=== PATIENT | male | born 1955 | race Caucasian/White ===

== ENCOUNTER 2021-07-24 14:49 | Emergency (ER) | payer OTHER, SELFPAY ==
[2021-07-24] VITALS (27 sets, daily range): BP systolic 122–211; BP diastolic 72–105; PULSE 62–86; RESP 18–28; O2SAT 90–97; BMI 26.9
--- NOTE | 2021-07-24 14:56 | DI.RAD.S_ITS ---
PROCEDURE: XR CHEST 1V INDICATIONS: chest pain TECHNIQUE: One view of the chest was acquired. COMPARISON: [facility], CHEST 2 VIEW, 04/03/2011, 12:55. [facility], CHEST 2 VIEW, 07/06/2015, 10:40. FINDINGS: Surgical changes and devices: Lower left thoracic clips are seen. Lungs and pleura: On this semiupright portable chest examination, no large pneumothorax or large pleural effusions are seen. No focal infiltrates are seen. Mediastinum: The cardiac contours are within normal limits. The aorta demonstrates calcification and tortuosity. Bones and chest wall: Age-appropriate bony degenerative changes are seen. Mild dextroconvex scoliotic curvature is seen. No suspicious bony lesions. Overlying soft tissues appear unremarkable. IMPRESSION: No acute cardiopulmonary process is seen. Dictated by: Juan Nunez M.D. on 07/24/2021 at 14:29 Approved by: Juan Nunez M.D. on 07/24/2021 at 14:30
[2021-07-24 15:22] LABS: Alanine Aminotransferase 18 IU/L (<50); Albumin 4.9 g/dL (3.5-5.0); Albumin Globulin Ratio 1.7 (1.0-2.8); Alkaline Phosphatase 61 U/L (38-126); Aspartate Aminotransferase 25 IU/L (17-59); BUN Creatinine Ratio 19.9 (6-22); Bilirubin Total 0.5 mg/dL (0.2-1.3); Blood Urea Nitrogen 28 mg/dL (9-20); Calcium 10.5 mg/dL (8.4-10.2); Carbon Dioxide 26 mmol/L (22-32); Chloride 105 mmol/L (98-107); Creatine Kinase 61 U/L (55-170); Estimated Glomerular Filt Rate 50.1 mL/min (>60); Globulin 2.9 g/dL (1.7-4.1); Glucose 116 mg/dL (80-110); HEMOLYSIS < 15 (0-50); Lipase 159 U/L (23-300); Potassium 4.8 mmol/L (3.4-5.1); Sodium 139 mmol/L (137-145); Total Protein 7.8 g/dL (6.3-8.2)
[2021-07-24 15:24] LABS: Add Manual Diff / Slide Review NO; Basophils Absolute Auto 0 /uL (0-100); Basophils Percent Auto 0.5 % (0-2); Eosinophils Absolute Auto 600 /uL (0-450); Eosinophils Percent Auto 9.6 % (2-4); Lymphocytes Absolute Auto 1900 /uL (1100-4500); Lymphocytes Percent Auto 28.8 % (25-40); Mean Corpuscular HGB Conc 34.9 % (30-36); Mean Corpuscular Hemoglobin 30.3 PG (26-34); Mean Corpuscular Volume 86.8 fL (80-100); Monocytes Absolute Auto 400 /uL (0-900); Monocytes Percent Auto 6.8 % (3-14); Neutrophils Absolute Auto 3600 /uL (1500-7000); Neutrophils Percent Auto 54.3 % (50-75); Platelet Count 193 X10^3/uL (150-400); Red Blood Cell Count 4.96 X10^6/uL (4.5-5.9); Red Cell Distribution Width 13.4 % (11.6-14.8); White Blood Cell Count 6.6 X10^3/uL (4.5-11.0)
[2021-07-24 15:34] LABS: Troponin I < 0.012 ng/mL (0.01-0.034)
[2021-07-24 16:12] LABS: COVID19 -Nasal RAPID Negative (Negative)
--- NOTE | 2021-07-24 16:26 | ED_ITS ---
HPI - Chest Pain <Annie Solis DO - Last Filed: 07/25/21 14:46> General Chief Complaint: Chest Pain Stated Complaint: Chest Pressure Time Seen by Provider: 07/24/21 15:42 Source: patient Mode of arrival: EMS Limitations: no limitations Limitations: no limitations History of Present Illness HPI narrative: This is a 66-year-old male with complaint of chest pressure into the left shoulder and down his arm with tingling he describes as being present for the past several months. When asked more specifically he has had persistently but states it is exertional. He states he has tightness into the left shoulder and some tingly sensation. It is worse with ambulation and exertion. He gets a little bit of nausea. He denies shortness of breath. He has had no swelling in his extremities he has had some chills but no fever. No cold cough or congestion. He has never had any vomiting. He has had some mild constipation but no urinary symptoms patient states that he was started on Imdur a couple weeks ago with no change. He was told if he requires more than 1 nitro he should go to the emergency department. He has had episodes where he will use 2 or 3 nitro but does not typically have complete resolution. His most recent episode he had at [facility] he took 2 nitro sublingual he felt lightheaded but had no syncope. Today he had an episode after going to a furniture store and took 1 nitro with no resolution. Patient has had stress testing in January of 2021 with negative test he has never had a stent or pacer placed and had MRI of the brain and angiography that was negative in February of 2022 after has a history of his mom dying of a brain aneurysm and his sister having a brain aneurysm. He has 3 brothers who had cardiac stents and pacemakers placed. And his father of an IA. he follows with cardiology with [place]. He has been in touch with his medical providers and they have scheduled him with the anticipation of having a cardiac catheterization this coming Monday. He is on multiple medications for hypertension, dyslipidemia, diabetes. He does have an essential tremor. Related Data Home Medications Medication Instructions Recorded Confirmed lisinopril 20 mg tablet 20 mg PO .QAFTERNOON tab 06/26/19 06/26/19 prazosin 2 mg capsule 2 mg PO BID 06/26/19 06/26/19 primidone 50 mg tablet 50 mg PO TID tab 06/26/19 06/26/19 trazodone 100 mg tablet 150 mg PO BEDTIME tab 06/26/19 06/26/19 Previous Rx's Medication Instructions Recorded lovastatin 40 mg tablet 80 mg PO HS #180 tab 07/21/16 metoprolol tartrate 50 mg tablet 75 mg PO BID #270 tab 10/24/16 zolpidem 5 mg tablet See Rx Instructions .ROUTE 03/19/19 .COMPLEX PRN #20 tab prazosin 1 mg capsule 4 mg PO HS #360 cap 04/29/19 cefuroxime axetil 500 mg tablet 500 mg PO Q12H #20 tab 08/20/19 codeine 10 mg-guaifenesin 100 mg/5 5 ml PO Q4H #118 ml 08/20/19 mL oral liquid metformin 500 mg tablet 500 mg PO BIDCC #180 tab 10/21/19 (Glucophage) omeprazole 20 mg capsule,delayed 20 mg PO BID #180 cap 10/21/19 release nifedipine 60 mg tablet,extended 60 mg PO QDAY #90 tab 03/12/20 release (Adalat CC) Allergies Allergy/AdvReac Type Severity Reaction Status Date / Time lisinopril [LISINOPRIL] Allergy Mild COUGHING Verified 06/26/19 11:18 rabeprazole [RABEPRAZOLE] Allergy Mild HEARTBURN Verified 06/26/19 11:18 tadalafil [TADALAFIL] Allergy Mild HEADACHE Verified 06/26/19 11:18 terazosin [TERAZOSIN] Allergy Mild NAUSEA Verified 06/26/19 11:18 triamterene [TRIAMTERENE] Allergy Mild HH Verified 06/26/19 11:18 vardenafil [VARDENAFIL] Allergy Mild HEADACHE Verified 06/26/19 11:18 Review of Systems <Annie Solis DO - Last Filed: 07/25/21 14:46> Review of Systems ROS Unobtainable: All systems reviewed & are unremarkable except as noted in HPI and below Patient History <Annie Solis DO - Last Filed: 07/25/21 14:46> Medical History Ankle pain (~1984) Chicken pox (~1959) Chronic back pain (~1994) Eczema (~1969) GERD (gastroesophageal reflux disease) (~1969) Headache (~1975) Hypertension (~1989) Migraines (~1975) Mitral valve prolapse (~2005) Pneumonia (~04/2011) Prostate cancer (~2010) Seasonal allergies (~1954) Shoulder pain (~1996) Substance abuse Surgical History AC separation Anesthesia History of vasectomy (~1979) Status post laparoscopic [place] fundoplication (~1993) Status post radical cystoprostatectomy (~09/2010) Trigger finger (~2009) Family History Brother No problems noted. Family/Other No problems noted. Father No problems noted. Mother No problems noted. Social History Smoking Status: Never smoker Smoking Status: Never smoker Substance Use Type: does not use Exam <Annie Solis DO - Last Filed: 07/25/21 14:46> Narrative Exam Narrative: GENERAL: Alert and oriented x three, elderly male in mild distress. HEENT: Head patient does have some plagiocephaly, atraumatic, EOMI, pupils reactive, face symmetric, moist mucous membranes NECK: Supple, full range of motion, negative Spurling's test. CARDIOVASCULAR: Regular rate and rhythm without murmurs, rubs or gallops. RESPIRATORY: Breath sounds equal bilaterally, no wheezes rales or rhonchi. ABDOMEN: Soft, nontender. Normoactive bowel sounds all 4 quadrants. No guarding or rebound, rigidity, no mass : No CVA tenderness EXTREMITIES: Normal range of motion, no clubbing or edema. Neurovascularly intact. 2+ radial pulse bilaterally. NEUROLOGICAL: Cranial nerves II through XII grossly intact. Moving all extremities. Patient has mild tremor. SKIN: Warm, dry, no petechiae, no rashes or lesions. Initial Vital Signs Initial Vital Signs: Vital Signs Pulse Rate 85 07/24/21 14:52 Respiratory Rate 19 07/24/21 14:52 Pulse Oximetry 97 07/24/21 14:52 <Emilie Serrato DO - Last Filed: 07/25/21 00:07> Initial Vital Signs Initial Vital Signs: Vital Signs Pulse Rate 85 02/19/22 14:52 Respiratory Rate 19 07/24/21 14:52 Pulse Oximetry 97 07/24/21 14:52 Course <Annie Solis, - Last Filed: 07/25/21 14:46> Orders Ordered: Discontinued Medications Amlodipine Besylate (Amlodipine 5 Mg Tablet) 10 mg PO NOW ONE Stop: 07/24/21 20:03 Last Admin: 07/24/21 20:42 Dose: 10 mg Documented by: MIO Carvedilol (Carvedilol 3.125 Mg Tablet) 6.25 mg PO NOW ONE Stop: 07/24/21 19:53 Last Admin: 07/24/21 20:05 Dose: 6.25 mg Documented by: MIO Heparin Sodium (Porcine) (Heparin 5,000 Unit/Ml Vial) 4,000 unit IV NOW ONE Stop: 07/24/21 19:46 Last Admin: 07/24/21 20:21 Dose: 4,000 unit Documented by: MIO Hydralazine HCl (Hydralazine 20 Mg/Ml Vial) 5 mg IV NOW ONE Stop: 07/24/21 20:39 Last Admin: 07/24/21 20:57 Dose: 5 mg Documented by: MIO Heparin Sodium/Dextrose (Heparin Drip) 25,000 unit in 500 mls @ 20 mls/hr IV CONT ANDREA; Protocol Last Admin: 07/24/21 20:17 Dose: 1,000 units/hr, 20 mls/hr Documented by: MIO Lisinopril (Lisinopril 20 Mg Tablet) 20 mg PO NOW ONE Stop: 07/24/21 20:03 Last Admin: 07/24/21 20:42 Dose: 20 mg Documented by: MIO Morphine Sulfate (Morphine 4 Mg/Ml Inj) 4 mg IV NOW ONE Stop: 07/24/21 16:49 Last Admin: 07/24/21 17:00 Dose: 4 mg Documented by: REGLA Morphine Sulfate (Morphine 4 Mg/Ml Inj) 4 mg IV NOW ONE Stop: 07/24/21 17:31 Last Admin: 07/24/21 18:52 Dose: Not Given Documented by: REGLA Reevaluation(s) Reevaluation #1: Patient has had improvement in his chest pain but still has 1-2 of the left chest after morphine. He states nitro was not helpful at all Reevaluation #2: Patient updated on recommendations from [place] physician. He is agreeable to this. We did know his blood pressure has been rising he has 2 hours over from his normal medications so these were ordered. We have not initiated nitro drip at this point. He asked that we do not yet. Time: 19:24 Consultations Consultation #1: Dr. Wong with [facility]. Feels patient has likely crescendo angina with his history he is able to review his records and feels patient would be appropriate for cardiac catheterization he is going to check with [place] for bed avail ability but asked us to check with [facility] to see if they have any beds they are more local to us. If no beds available either facility we would plan to search elsewhere. Time: 19:23 Consultation #2: Dr. Bui, Cardiology at [facility]. Reviewed my discussion with Dr. Wong, patient has HPI and findings today. He is agreeable to transfer if there is bed availability. He would ask for heparin drip but no nitro drip at this time. Would suspect if they cathed him it would likely be Monday over Monday unless there were new changes on his EKGs or lab findings. Vital Signs Vital signs: Vital Signs - 8 hr 07/24/21 16:30 07/24/21 17:00 07/24/21 17:30 Pulse Rate 69 67 67 Respiratory Rate 19 19 18 Blood Pressure 157/78 H 174/81 H 174/85 H Pulse Oximetry 96 96 96 07/24/21 18:03 07/24/21 18:04 07/24/21 18:05 Pulse Rate 76 70 62 Respiratory Rate 21 Blood Pressure 197/93 H 181/89 H Pulse Oximetry 90 L 97 97 07/24/21 18:24 07/24/21 18:30 07/24/21 19:00 Pulse Rate 71 65 63 Respiratory Rate Blood Pressure 198/97 H 193/98 H 193/96 H Pulse Oximetry 96 97 97 07/24/21 19:06 07/24/21 19:30 07/24/21 20:08 Pulse Rate 65 66 67 Respiratory Rate Blood Pressure 194/104 H 202/105 H Pulse Oximetry 95 96 97 07/24/21 20:23 07/24/21 20:30 07/24/21 21:00 Pulse Rate 64 65 79 Respiratory Rate 24 24 24 Blood Pressure 211/103 H 199/93 H Pulse Oximetry 97 96 96 07/24/21 21:05 07/24/21 21:06 07/24/21 21:25 Pulse Rate 86 85 80 Respiratory Rate 21 28 H 22 Blood Pressure 200/95 H 193/91 H 180/89 H Pulse Oximetry 97 97 96 07/24/21 21:26 07/24/21 21:30 07/24/21 22:00 Pulse Rate 83 71 Respiratory Rate 21 27 H Blood Pressure 180/89 H Pulse Oximetry 96 97 07/24/21 22:10 Pulse Rate 68 Respiratory Rate 22 Blood Pressure 186/94 H Pulse Oximetry 96 <Emilie Serrato DO - Last Filed: 07/25/21 00:07> Orders Ordered: Discontinued Medications Amlodipine Besylate (Amlodipine 5 Mg Tablet) 10 mg PO NOW ONE Stop: 07/24/21 20:03 Last Admin: 07/24/21 20:42 Dose: 10 mg Documented by: MIO Carvedilol (Carvedilol 3.125 Mg Tablet) 6.25 mg PO NOW ONE Stop: 07/24/21 19:53 Last Admin: 07/24/21 20:05 Dose: 6.25 mg Documented by: MIO Heparin Sodium (Porcine) (Heparin 5,000 Unit/Ml Vial) 4,000 unit IV NOW ONE Stop: 07/24/21 19:46 Last Admin: 07/24/21 20:21 Dose: 4,000 unit Documented by: MIO Hydralazine HCl (Hydralazine 20 Mg/Ml Vial) 5 mg IV NOW ONE Stop: 07/24/21 20:39 Last Admin: 07/24/21 20:57 Dose: 5 mg Documented by: MIO Heparin Sodium/Dextrose (Heparin Drip) 25,000 unit in 500 mls @ 20 mls/hr IV CONT ANDREA; Protocol Last Admin: 07/24/21 20:17 Dose: 1,000 units/hr, 20 mls/hr Documented by: MIO Lisinopril (Lisinopril 20 Mg Tablet) 20 mg PO NOW ONE Stop: 07/24/21 20:03 Last Admin: 07/24/21 20:42 Dose: 20 mg Documented by: MIO Morphine Sulfate (Morphine 4 Mg/Ml Inj) 4 mg IV NOW ONE Stop: 07/24/21 16:49 Last Admin: 07/24/21 17:00 Dose: 4 mg Documented by: REGLA Morphine Sulfate (Morphine 4 Mg/Ml Inj) 4 mg IV NOW ONE Stop: 07/24/21 17:31 Last Admin: 07/24/21 18:52 Dose: Not Given Documented by: REGLA Vital Signs Vital signs: Vital Signs - 8 hr 07/24/21 16:30 07/24/21 17:00 07/24/21 17:30 Pulse Rate 69 67 67 Respiratory Rate 19 19 18 Blood Pressure 157/78 H 174/81 H 174/85 H Pulse Oximetry 96 96 96 07/24/21 18:03 07/24/21 18:04 07/24/21 18:05 Pulse Rate 76 70 62 Respiratory Rate 21 Blood Pressure 197/93 H 181/89 H Pulse Oximetry 90 L 97 97 07/24/21 18:24 07/24/21 18:30 07/24/21 19:00 Pulse Rate 71 65 63 Respiratory Rate 21 20 22 Blood Pressure 198/97 H 193/98 H 193/96 H Pulse Oximetry 96 97 97 07/24/21 19:06 07/24/21 19:30 07/24/21 20:08 Pulse Rate 65 66 67 Respiratory Rate 21 23 22 Blood Pressure 194/104 H 202/105 H Pulse Oximetry 95 96 97 07/24/21 20:23 07/24/21 20:30 07/24/21 21:00 Pulse Rate 64 65 79 Respiratory Rate 24 24 24 Blood Pressure 211/103 H 199/93 H Pulse Oximetry 97 96 96 07/24/21 21:05 07/24/21 21:06 07/24/21 21:25 Pulse Rate 86 85 80 Respiratory Rate 21 28 H 22 Blood Pressure 200/95 H 193/91 H 180/89 H Pulse Oximetry 97 97 96 07/24/21 21:26 07/24/21 21:30 07/24/21 22:00 Pulse Rate 83 71 Respiratory Rate 21 27 H Blood Pressure 180/89 H Pulse Oximetry 96 97 07/24/21 22:10 Pulse Rate 68 Respiratory Rate 22 Blood Pressure 186/94 H Pulse Oximetry 96 MDM - Chest Pain <Annie C Mank, DO - Last Filed: 07/25/21 14:46> Lab Data Result diagrams: 07/24/21 14:52 07/24/21 14:52 Labs: Lab Results 07/24/21 07/24/21 07/24/21 Range/Units 14:52 14:52 14:52 WBC 6.6 (4.5-11.0) X10^3/uL RBC 4.96 (4.5-5.9) X10^6/uL Hgb 15.0 (13.5-17.5) g/dL Hct 43.0 (41-53) % MCV 86.8 (80-100) fL MCH 30.3 (26-34) PG MCHC 34.9 (30-36) % RDW 13.4 (11.6-14.8) % Plt Count 193 (150-400) X10^3/uL Neut % (Auto) 54.3 (50-75) % Lymph % (Auto) 28.8 (25-40) % Fergus % (Auto) 6.8 (3-14) % Eos % (Auto) 9.6 H (2-4) % Baso % (Auto) 0.5 (0-2) % Neut # (Auto) 3600 (9930-7518) /uL Lymph # (Auto) 1900 (2661-8816) /uL Fergus # (Auto) 400 (0-900) /uL Eos # (Auto) 600 H (0-450) /uL Baso # (Auto) 0 (0-100) /uL APTT 30 (26.4-36.2) SECONDS Sodium 139 (137-145) mmol/L Potassium 4.8 (3.4-5.1) mmol/L Chloride 105 (98-107) mmol/L Carbon Dioxide 26 (22-32) mmol/L BUN 28 H (9-20) mg/dL Creatinine 1.41 H (0.66-1.25) mg/dL Estimated GFR 50.1 L (>60) mL/min BUN/Creatinine Ratio 19.9 (6-22) Glucose 116 H (80-110) mg/dL Calcium 10.5 H (8.4-10.2) mg/dL Magnesium 2.0 (1.6-2.3) mg/dL Total Bilirubin 0.5 (0.2-1.3) mg/dL AST 25 (17-59) IU/L ALT 18 (<50) IU/L Alkaline Phosphatase 61 (38-126) U/L Total Creatine Kinase 61 (55-170) U/L CK-MB (CK-2) TNP CK-MB (CK-2) Rel Index TNP Troponin I < 0.012 (0.01-0.034) ng/mL NT-Pro-B Natriuret Pep (<125) pg/mL Total Protein 7.8 (6.3-8.2) g/dL Albumin 4.9 (3.5-5.0) g/dL Globulin 2.9 (1.7-4.1) g/dL Albumin/Globulin Ratio 1.7 (1.0-2.8) Lipase 159 (23-300) U/L SARS-CoV-2 (PCR) (Negative) 07/24/21 07/24/21 07/24/21 Range/Units 15:50 17:00 17:00 WBC (4.5-11.0) X10^3/uL RBC (4.5-5.9) X10^6/uL Hgb (13.5-17.5) g/dL Hct (41-53) % MCV (80-100) fL MCH (26-34) PG MCHC (30-36) % RDW (11.6-14.8) % Plt Count (150-400) X10^3/uL Neut % (Auto) (50-75) % Lymph % (Auto) (25-40) % Fergus % (Auto) (3-14) % Eos % (Auto) (2-4) % Baso % (Auto) (0-2) % Neut # (Auto) (8750-6075) /uL Lymph # (Auto) (3610-9848) /uL Fergus # (Auto) (0-900) /uL Eos # (Auto) (0-450) /uL Baso # (Auto) (0-100) /uL APTT (26.4-36.2) SECONDS Sodium (137-145) mmol/L Potassium (3.4-5.1) mmol/L Chloride (98-107) mmol/L Carbon Dioxide (22-32) mmol/L BUN (9-20) mg/dL Creatinine (0.66-1.25) mg/dL Estimated GFR (>60) mL/min BUN/Creatinine Ratio (6-22) Glucose (80-110) mg/dL Calcium (8.4-10.2) mg/dL Magnesium (1.6-2.3) mg/dL Total Bilirubin (0.2-1.3) mg/dL AST (17-59) IU/L ALT (<50) IU/L Alkaline Phosphatase (38-126) U/L Total Creatine Kinase (55-170) U/L CK-MB (CK-2) CK-MB (CK-2) Rel Index Troponin I < 0.012 (0.01-0.034) ng/mL NT-Pro-B Natriuret Pep 41 (<125) pg/mL Total Protein (6.3-8.2) g/dL Albumin (3.5-5.0) g/dL Globulin (1.7-4.1) g/dL Albumin/Globulin Ratio (1.0-2.8) Lipase (23-300) U/L SARS-CoV-2 (PCR) Negative (Negative) Imaging Data Chest x-ray: Radiologist's Impression: Adrian Palacios??66??M??1955 ? Allergy/Adv: lisinopril, rabeprazole, tadalafil, terazosin, triamterene, vardenafil (More??) Close Chest X-Ray (Signed) Juan Nunez - 07/24/21 Launch?Image [address] [address] XRay Report Signed Patient: Adrian Palacios MR#: [id number] : 1955 Acct:[id number] Age/Sex: 66 / M Date of Service: 07/24/21 Loc: ED Accession Number: [id number] ?? Procedure: XR chest 1V Ordering Provider: Annie Solis D.O. PROCEDURE:? XR CHEST 1V ? INDICATIONS:? chest pain ? TECHNIQUE:? One view of the chest was acquired.? ? COMPARISON:? [facility], , CHEST 2 VIEW, 04/03/2011, 12:55.? [facility], , CHEST 2 VIEW, 07/06/2015, 10:40. ? FINDINGS:? ? Surgical changes and devices:? Lower left thoracic clips are seen. ? Lungs and pleura:? On this semiupright portable chest examination, no large pneumothorax or large pleural effusions are seen.? No focal infiltrates are seen.? ? Mediastinum:? The cardiac contours are within normal limits. The aorta demonstrates calcification and tortuosity. ? Bones and chest wall:? Age-appropriate bony degenerative changes are seen.? Mild dextroconvex scoliotic curvature is seen.? ? No suspicious bony lesions.? Overlying soft tissues appear unremarkable.? ? ? IMPRESSION:? ? No acute cardiopulmonary process is seen.? Dictated by: Juan Nunez M.D. on 07/24/2021 at 14:29 ? ? Approved by: Juan Nunez M.D. on 07/24/2021 at 14:30? ECG Data Attestation: I personally reviewed and interpreted this ECG as follows: Prior ECG tracings: available for review Interpretation: NSR, rate of 80, NJ of 198, qrs 94, qtc 426. NO acute ST changes. RSR in 2, 3 and avF. Prior from 08/31/10 with no acute changes. Sinus rhythm, rate of 69 NJ 196 QRS of 92 and QTC 413. No acute ST changes appreciated. Patient has RSR in doing AVF which appears similar to priors. MDM Narrative Medical decision making narrative: This is a 66-year-old male with multiple risk factors for cardiac causes of chest pain. He has had persistent chest pain for several months but worsened with exertion he has some nausea. EKGs are negative, troponin is negative with no acute changes. Patient is hypertensive but is several hours over his medications. He did not have any improvement with nitro. He had some improvement with morphine. I spoke with Mitch Wong who feels patient would benefit from moving his cardiac catheterization date upwards. We will attempt to seek placement and he is checking with [facility] to see about bed availability. Patient signed out to Dr. Serrato while awaiting finding bed availability. I have spoken with [facility] they do not have beds there are bed availability at [facility] I spoke with Dr. Bui from Cardiology who is agreeable to see the patient but will need to have conversation with hospitalist also. I received sign-out from Dr. Solis I have seen and evaluated patient myself. Patient currently has pain and discomfort as a 3 which he says is normal for him. His blood pressure while in the emergency department has slowly risen from 171 systolic of 211. He has not taken his maintenance medications. I have discussed this with Dr. Bui who recommends giving lisinopril Coreg and addition to amlodipine 10 mg. I have also discussed this with the hospitalist over at [facility] who requests CT angio along with IV labetalol or hydralazine. <Emilie Serrato, DO - Last Filed: 07/25/21 00:07> Lab Data Labs: Lab Results 07/24/21 07/24/21 07/24/21 Range/Units 14:52 14:52 14:52 WBC 6.6 (4.5-11.0) X10^3/uL RBC 4.96 (4.5-5.9) X10^6/uL Hgb 15.0 (13.5-17.5) g/dL Hct 43.0 (41-53) % MCV 86.8 (80-100) fL MCH 30.3 (26-34) PG MCHC 34.9 (30-36) % RDW 13.4 (11.6-14.8) % Plt Count 193 (150-400) X10^3/uL Neut % (Auto) 54.3 (50-75) % Lymph % (Auto) 28.8 (25-40) % Fergus % (Auto) 6.8 (3-14) % Eos % (Auto) 9.6 H (2-4) % Baso % (Auto) 0.5 (0-2) % Neut # (Auto) 3600 (5637-9543) /uL Lymph # (Auto) 1900 (6487-4837) /uL Fergus # (Auto) 400 (0-900) /uL Eos # (Auto) 600 H (0-450) /uL Baso # (Auto) 0 (0-100) /uL APTT 30 (26.4-36.2) SECONDS Sodium 139 (137-145) mmol/L Potassium 4.8 (3.4-5.1) mmol/L Chloride 105 (98-107) mmol/L Carbon Dioxide 26 (22-32) mmol/L BUN 28 H (9-20) mg/dL Creatinine 1.41 H (0.66-1.25) mg/dL Estimated GFR 50.1 L (>60) mL/min BUN/Creatinine Ratio 19.9 (6-22) Glucose 116 H (80-110) mg/dL Calcium 10.5 H (8.4-10.2) mg/dL Magnesium 2.0 (1.6-2.3) mg/dL Total Bilirubin 0.5 (0.2-1.3) mg/dL AST 25 (17-59) IU/L ALT 18 (<50) IU/L Alkaline Phosphatase 61 (38-126) U/L Total Creatine Kinase 61 (55-170) U/L CK-MB (CK-2) TNP CK-MB (CK-2) Rel Index TNP Troponin I < 0.012 (0.01-0.034) ng/mL NT-Pro-B Natriuret Pep (<125) pg/mL Total Protein 7.8 (6.3-8.2) g/dL Albumin 4.9 (3.5-5.0) g/dL Globulin 2.9 (1.7-4.1) g/dL Albumin/Globulin Ratio 1.7 (1.0-2.8) Lipase 159 (23-300) U/L SARS-CoV-2 (PCR) (Negative) 07/24/21 07/24/21 07/24/21 Range/Units 15:50 17:00 17:00 WBC (4.5-11.0) X10^3/uL RBC (4.5-5.9) X10^6/uL Hgb (13.5-17.5) g/dL Hct (41-53) % MCV (80-100) fL MCH (26-34) PG MCHC (30-36) % RDW (11.6-14.8) % Plt Count (150-400) X10^3/uL Neut % (Auto) (50-75) % Lymph % (Auto) (25-40) % Fergus % (Auto) (3-14) % Eos % (Auto) (2-4) % Baso % (Auto) (0-2) % Neut # (Auto) (6346-4358) /uL Lymph # (Auto) (8569-7638) /uL Fergus # (Auto) (0-900) /uL Eos # (Auto) (0-450) /uL Baso # (Auto) (0-100) /uL APTT (26.4-36.2) SECONDS Sodium (137-145) mmol/L Potassium (3.4-5.1) mmol/L Chloride (98-107) mmol/L Carbon Dioxide (22-32) mmol/L BUN (9-20) mg/dL Creatinine (0.66-1.25) mg/dL Estimated GFR (>60) mL/min BUN/Creatinine Ratio (6-22) Glucose (80-110) mg/dL Calcium (8.4-10.2) mg/dL Magnesium (1.6-2.3) mg/dL Total Bilirubin (0.2-1.3) mg/dL AST (17-59) IU/L ALT (<50) IU/L Alkaline Phosphatase (38-126) U/L Total Creatine Kinase (55-170) U/L CK-MB (CK-2) CK-MB (CK-2) Rel Index Troponin I < 0.012 (0.01-0.034) ng/mL NT-Pro-B Natriuret Pep 41 (<125) pg/mL Total Protein (6.3-8.2) g/dL Albumin (3.5-5.0) g/dL Globulin (1.7-4.1) g/dL Albumin/Globulin Ratio (1.0-2.8) Lipase (23-300) U/L SARS-CoV-2 (PCR) Negative (Negative) MDM Narrative Medical decision making narrative: This is a 66-year-old male with multiple risk factors for cardiac causes of chest pain. He has had persistent chest pain for several months but worsened with exertion he has some nausea. EKGs are negative, troponin is negative with no acute changes. Patient is hypertensive but is several hours over his medications. He did not have any improvement with nitro. He had some improvement with morphine. I spoke with Mitch Wong who feels patient would benefit from moving his cardiac catheterization date upwards. We will attempt to seek placement and he is checking with [facility] to see about bed availability. Patient signed out to Dr. Serrato while awaiting finding bed availability. I received sign-out from Dr. Solis I have seen and evaluated patient myself. Patient currently has pain and discomfort as a 3 which he says is normal for him. His blood pressure while in the emergency department has slowly risen from 171 systolic of 211. He has not taken his maintenance medications. I have discussed this with Dr. Bui who recommends giving lisinopril Coreg and addition to amlodipine 10 mg. I have also discussed this with the hospitalist over at [facility] who requests CT angio along with IV labetalol or hydralazine. Discharge Plan Departure Patient Disposition: [facility] Clinical Impression: Chest pain Prescriptions: No Action lovastatin 40 MG tablet 80 mg PO HS Qty: 180 3RF metoprolol tartrate 50 MG tablet 75 mg PO BID Qty: 270 3RF zolpidem 5 mg tablet See Rx Instructions .ROUTE .COMPLEX PRN (Reason: insomnia) Qty: 20 0RF Dose Instruction: Take 1-2 tabs by mouth at bedtime as needed for insomina PRN; Take 1-2 tabs by mouth at bedtime as needed for insomina Rx Instructions: Take 1-2 tabs by mouth at bedtime as needed for insomnia prazosin 1 mg capsule 4 mg PO HS Qty: 360 0RF codeine-guaifenesin 10-100 mg/5 mL liquid 5 ml PO Q4H Qty: 118 0RF Rx Instructions: Take 5ml by mouth up to every four hours as needed for cough. cefuroxime axetil 500 mg tablet 500 mg PO Q12H Qty: 20 0RF Rx Instructions: Take one tablet by mouth twice a day for ten days. metformin [Glucophage] 500 mg tablet 500 mg PO BIDCC Qty: 180 3RF omeprazole 20 mg capsule,delayed release(DR/EC) 20 mg PO BID Qty: 180 3RF nifedipine [Adalat CC] 60 mg tablet extended release 60 mg PO QDAY Qty: 90 3RF trazodone 100 mg tablet 150 mg PO BEDTIME 0RF primidone 50 mg tablet 50 mg PO TID 0RF lisinopril 20 mg tablet 20 mg PO .QAFTERNOON 0RF prazosin 2 mg capsule 2 mg PO BID 0RF Rx Instructions: Will be moving to 2 mg BID once he finishes his 1mg RX. Referrals: Susan Taylor MD [Primary Care Provider] -
[2021-07-24] MEDS: MORPHINE 4 MG/ML INJ IV (17:00)
[2021-07-24 17:29] LABS: Troponin I < 0.012 ng/mL (0.01-0.034)
[2021-07-24 20:00] LABS: PTT Partial Thromboplastin Tim 30 SECONDS (26.4-36.2)
[2021-07-24] MEDS: carvediloL 3.125 MG TABLET 6.25 MG PO (20:05)
[2021-07-24] MEDS: HEPARIN DRIP 25,000 UNIT/500 ML IV.SOLN 20 UNIT IV (20:17)
[2021-07-24] MEDS: HEPARIN 5,000 UNIT/ML VIAL 4000 UNIT IV (20:21)
--- NOTE | 2021-07-24 20:24 | PC.NURSE ---
Heparin checked with ABHISHEK Muñiz prior to starting medication
--- NOTE | 2021-07-24 20:33 | DI.CT.S_ITS ---
PROCEDURE: CT ANGIO CHEST ABDOMEN PELVIS INDICATIONS: HTN chest pain TECHNIQUE: Precontrast 5 mm thick sections acquired from the lung apices to the iliac crests. After the administration of intravenous contrast, 2.5 mm thick sections again acquired from the lung apices to the iliac crests. Maximum intensity projection (MIP) oblique sagittal and coronal reformats were then acquired. For radiation dose reduction, the following was used: automated exposure control. COMPARISON: [facility], , CHEST 2 VIEW, 07/06/2015, 10:40. [facility], , XR CHEST 1V, 07/24/2021, 15:05. FINDINGS: Image quality: Excellent. AORTA: Intramural hematoma: Absent Maximum hematoma thickness: Not applicable. Focal contrast enhancement: Intramural blood pool (< 2 mm neck or imperceptible communication with aortic lumen): Absent . Ulcer-like projection (broad communication with aortic lumen > 3 mm): Absent . Dissection: Absent Ravinder classification: Not applicable Maximum aortic diameter: Normal aortic caliber Periaortic hematoma: Absent . CHEST: Lungs and pleura: No acute airspace opacities. No pleural effusions or pneumothorax. Central and peripheral airways are patent and normal in caliber. Mediastinum: Heart size is normal. No pericardial effusion. No mediastinal or hilar adenopathy by size criteria. Central pulmonary arteries are normal in size. Esophagus is normal in caliber. There is a moderate-sized hiatal hernia behind the heart. Bones and chest wall: No axillary adenopathy by size criteria. Thyroid gland appears normal where well seen . No suspicious bony lesions. No vertebral body compression fractures. ABDOMEN: Vasculature: Celiac trunk and mesenteric arteries are patent. Renal arteries are also patent. Solid organs: Liver is normal in size and enhancement. Gallbladder contains a 1.5 cm maximal dimension gallstone but there is no sign of biliary obstruction or acute cholecystitis. . Biliary system is non dilated. Pancreas enhances normally. Spleen is normal in size and enhancement. No adrenal nodules. Both kidneys are normal in size and enhancement, without hydronephrosis. Peritoneum and bowel: No free fluid or air. Bowel loops are normal in caliber and wall thickness. Nodes and vessels: No retroperitoneal or mesenteric adenopathy by size criteria. Inferior vena cava is normal in morphology. Miscellaneous: No ventral hernias. PELVIS: Genitourinary: Bladder wall thickness is normal. Miscellaneous: No inguinal hernias or adenopathy. No ventral hernias. Bones: No suspicious bony lesions. No vertebral body compression fractures. IMPRESSION: Moderate-sized hiatal hernia behind the heart. Several clustered surgical clips are present in the upper epigastrium near the midline and the hiatal hernia. Moderate-sized gallstone within the gallbladder lumen, calcified, without associated biliary obstruction or inflammation. Source of chest pain is not identified. No CT evidence of pulmonary embolus is found. Dictated by: Mohan Gupta M.D. on 07/24/2021 at 21:08 Approved by: Mohan Gupta M.D. on 07/24/2021 at 21:12
[2021-07-24] MEDS: AMLODIPINE 5 MG TABLET 10 MG PO (20:42)
[2021-07-24] MEDS: lisinopriL 20 MG TABLET PO (20:42)
[2021-07-24 20:52] LABS: NT-proBNP (BNP-Adult 18+) 41 pg/mL (<125)
--- NOTE | 2021-07-24 20:55 | PC.NURSE ---
returned from ct
[2021-07-24] MEDS: HYDRALAZINE 20 MG/ML VIAL 5 MG IV (20:57)
--- NOTE | 2021-07-24 21:08 | PC.NURSE ---
prior to hydrolazine
--- NOTE | 2021-07-24 22:38 | PC.NURSE ---
report given to CCT RN
== END 2021-07-24 22:38 | disposition short-term general hospital (02) ==
PROVIDERS: Emergency Medicine; Emergency Provider Emergency Medicine; Family Provider Family Medicine; PCP Family Medicine
DX: R07.9 Chest pain, unspecified (principal); Z20.822 Contact with and (suspected) exposure to COVID-19
CPT/HCPCS: 36415; 71045; 71275; 74174; 80053; 82550; 83690; 83735; 83880; 84484; 85025; 85730; 87635; 93005; 93010; 96374; 96375; 99284; 99285; C9803; J0360; J1644; J2270